=== PATIENT | male | born 1980 | race Caucasian/White ===

== ENCOUNTER 2022-06-12 12:01 | Emergency (ER) | payer OTHER ==
[~2022-06-12] VITALS: Ht 172.7 cm; Wt 75.8 kg
[2022-06-12 12:02] VITALS: BP 125/83
== END 2022-06-12 13:32 | disposition home or self-care (01) ==
LOC: M ED 12:01
DX: R22.41 Localized swelling, mass and lump, right lower limb (principal); G43.909 Migraine, unspecified, not intractable, without status migrainosus; Z77.098 Contact with and (suspected) exposure to other hazardous, chiefly nonmedicinal, chemicals

== ENCOUNTER → 2022-06-27 | Outpatient (CLI) | payer OTHER | LOC: M SOG 08:08 | PROVIDERS: ATTEND Orthopaedic Surgery Adult Reconstructive Orthopaedic Surgery | DX: M25.561 Pain in right knee (principal) ==

== ENCOUNTER → 2022-07-22 | Outpatient (CLI) | payer OTHER | LOC: M PLAIMG 10:54 → EDSEX 11:30 | PROVIDERS: ATTEND Orthopaedic Surgery Adult Reconstructive Orthopaedic Surgery | DX: M23.91 Unspecified internal derangement of right knee (principal) ==

== ENCOUNTER → 2023-06-09 | Outpatient (CLI) | payer OTHER | LOC: M RAD 17:09 | PROVIDERS: ATTEND Chiropractor | DX: M50.33 Other cervical disc degeneration, cervicothoracic region (principal); M99.01 Segmental and somatic dysfunction of cervical region; M51.37 Other intervertebral disc degeneration, lumbosacral region; M99.03 Segmental and somatic dysfunction of lumbar region; M51.34 Other intervertebral disc degeneration, thoracic region; M99.02 Segmental and somatic dysfunction of thoracic region; G43.001 Migraine without aura, not intractable, with status migrainosus; M85.88 Other specified disorders of bone density and structure, other site ==

== ENCOUNTER 2023-08-07 15:16 | Emergency (ER) | payer OTHER ==
[~2023-08-07] VITALS: Ht 172.7 cm; Wt 83.7 kg
[2023-08-07] MEDS ORDERED: IBUPROFEN 600MG TAB PO ONE (17:30)
[2023-08-07] MEDS ORDERED: IBUP-1022 PO (17:32)
[2023-08-07 17:48] VITALS: BP 148/90; TEMP 97.8; O2SAT 99
== END 2023-08-07 17:59 | disposition home or self-care (01) ==
LOC: M ED 15:16
DX: S93.401A Sprain of unspecified ligament of right ankle, initial encounter (principal); X50.1XXA Overexertion from prolonged static or awkward postures, initial encounter; Y92.009 Unspecified place in unspecified non-institutional (private) residence as the place of occurrence of the external cause

== ENCOUNTER 2024-11-07 19:20 | Emergency (ER) | payer OTHER, SELFPAY ==
[~2024-11-07] VITALS: Ht 172.7 cm; Wt 74.0 kg
[~2024-11-07 19:20] MED LIST: IBUP-1022 PO
[2024-11-07 23:23] VITALS: BP 136/97; TEMP 98; O2SAT 100
[2024-11-08] MEDS: IBUPROFEN 600MG TAB PO ONE (00:29)
== END 2024-11-08 00:36 | disposition home or self-care (01) ==
LOC: M ED 19:20
DX: S92.515A Nondisplaced fracture of proximal phalanx of left lesser toe(s), initial encounter for closed fracture (principal); Y92.019 Unspecified place in single-family (private) house as the place of occurrence of the external cause; Y93.9 Activity, unspecified; Y99.9 Unspecified external cause status; F10.10 Alcohol abuse, uncomplicated

== ENCOUNTER → 2024-12-01 | Outpatient (CLI) | payer OTHER, SELFPAY | LOC: M SOG 07:54 | PROVIDERS: ATTEND Physician Assistant | DX: Z53.9 Procedure and treatment not carried out, unspecified reason (principal) ==